=== PATIENT | female | born 1960 | race Caucasian/White ===

== ENCOUNTER → 2017-09-07 | Outpatient (CLI) | payer OTHER, MEDICARE ==
[~2017-09-07] MED LIST: ACIDOPHILUS1 EAC3 PO; ADULT ASPIRIN R81 MG PO; AMBIEN 10 MG TA10 MG PO; BENTYL 20 MG TA20 M1 PO; CARISOPRODOL 3350 MG PO; EXALGO8 MG PO; EXCEDRIN CAPLE1 EACH PO; HYDROXYZINE HCL25 M1 PO; IMITREX100 MG PO; LEXAPRO20 MG PO; LIDODERM1 EACH TRANSDERM; LINZESS72 MCG PO; LIPITOR10 MG PO; LOPERAMIDE 2 MG2 M1 PO; MYRBETRIQ25 MG PO; OMEPRAZOLE 20 M20 M1 PO; PROLIA60 MG/1 ML SUBQ; RANITIDINE HCL300 MG PO; RHINOCORT ALL8.43 ML NASAL; SM CALCIUM PO; TOPAMAX 25 MG T25 M1 PO; TRAMADOL 50 MG50 MG PO; TRAZODONE HCL100 MG PO; TUMS PO; XANAX1 MG PO; ZYRTEC10 M5 PO
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
== END ==
LOC: M.PC 00:26
DX: E11.22 Type 2 diabetes mellitus with diabetic chronic kidney disease (principal); E11.40 Type 2 diabetes mellitus with diabetic neuropathy, unspecified; N18.3 Chronic kidney disease, stage 3 (moderate); F32.9 Major depressive disorder, single episode, unspecified; K21.9 Gastro-esophageal reflux disease without esophagitis; G43.909 Migraine, unspecified, not intractable, without status migrainosus; M81.0 Age-related osteoporosis without current pathological fracture; K51.90 Ulcerative colitis, unspecified, without complications; F41.9 Anxiety disorder, unspecified; M79.7 Fibromyalgia; G89.29 Other chronic pain